=== PATIENT | female | born 1980 | race Caucasian/White ===

== ENCOUNTER 2020-10-15 16:09 | Outpatient (CLI) | payer OTHER ==
--- NOTE | 2020-10-15 17:04 | Ultrasound Report ---
PROCEDURE: Pelvic w/Transvaginal INDICATIONS: PELVIC PAIN TECHNIQUE: Real-time scanning was performed of the pelvic organs, with image documentation. Additional endovagi nal scanning was necessary due to incomplete visualization of the adnexal and endometrial structures by transabdominal scanning. COMPARISON: None. FINDINGS: Transabdominal scanning: Limited scanning through the kidneys shows no hydronephrosis. No pathologi c free abdominal or pelvic fluid. Endovaginal scanning: Uterus: Uterus is normal in size at 8.3 x 3.8 x 5.3 cm. The endometrium measures 6 mm in combined t hickness. IUD is noted be in appropriate position. Ovaries: Right ovary measures 2.6 x 2.3 x 2.1 cm, volume 6.8 cc. Less than 12 follicles are noted. L eft ovary measures 3.1 x 1.7 x 2.1 cm, volume 5.5 cc. Less than 12 follicles are noted. IMPRESSION: 1. IUD is in appropriate position. 2. No visualized cause of pain. Reviewed by: Jenn Goldberg MD on 10/15/2020 5:03 PM PST Approved by: Jenn Goldberg MD on 10/15/2020 5:03 PM PST Station ID: [id number]
== END 2020-10-15 16:10 | disposition home or self-care (01) ==
LOC: DI 16:09
PROVIDERS: ATTEND Nurse Practitioner Family
DX: R10.2 Pelvic and perineal pain (principal); Z97.5 Presence of (intrauterine) contraceptive device

== ENCOUNTER 2023-05-26 14:25 | Outpatient (CLI) | payer OTHER ==
[2023-05-26 19:59] LABS: BASOPHILS % (AUTO) 0.4 %; EOSINOPHILS # (AUTO) 0.1 10^3/uL (0.0-0.7); HCT - HEMATOCRIT 38.6 % (37.0-47.0); HGB - HEMOGLOBIN 12.9 g/dL (12.0-16.0); LYMPHOCYTES # (AUTO) 1.4 10^3/uL (1.5-3.5); LYMPHOCYTES % (AUTO) 20.3 %; MEAN CORPUSCULAR HEMOGLOBIN 29.9 pg (27.0-31.0); MEAN CORPUSCULAR HGB CONC 33.4 g/dL (32.0-36.0); MEAN CORPUSCULAR VOLUME 89.6 fL (81.0-99.0); MEAN PLATELET VOLUME 9.5 fL (7.9-10.8); MONOCYTES # (AUTO) 0.4 10^3/uL (0.0-1.0); NEUTROPHILS # (AUTO) 5.1 10^3/uL (1.5-6.6); NEUTROPHILS % (AUTO) 72.2 %; PLT - PLATELET COUNT 284 10^3/uL (130-450); RED BLOOD COUNT 4.31 10^6/uL (4.20-5.40); RED CELL DISTRIBUTION WIDTH 11.7 % (12.0-15.0); WHITE BLOOD COUNT 7.1 x10^3/uL (4.8-10.8)
[2023-05-26 20:16] LABS: ALBUMIN/GLOBULIN RATIO 1.6 (1.0-2.2); BILIRUBIN,TOTAL 0.3 mg/dL (0.2-1.0); CREATININE 0.6 mg/dL (0.6-1.3); POTASSIUM 3.5 mmol/L (3.5-4.5); TOTAL PROTEIN 6.5 g/dL (6.4-8.9)
[2023-05-28 04:09] LABS: HBsAG SCREEN Negative (Negative)
[2023-05-28 05:13] LABS: HCV AB Non Reactive (Non Reactive); RPR Non Reactive (Non Reactive)
[2023-05-28 08:10] LABS: HIV SCREEN 4TH GENERATION Non Reactive (Non Reactive)
[2023-05-28 09:10] LABS: VARICELLA-ZOSTER AB IGG 3122 index (Immune >165)
== END 2023-05-26 23:59 | disposition home or self-care (01) ==
LOC: LAB.S 14:25
PROVIDERS: ATTEND Nurse Practitioner Obstetrics & Gynecology
DX: O09.521 Supervision of elderly multigravida, first trimester (principal); Z36.89 Encounter for other specified antenatal screening
CPT/HCPCS: 36415; 80053; 84439; 84443; 85025; 86592; 86762; 86787; 86803; 86850; 86870; 86880; 86900; 86901; 87340; 87389

== ENCOUNTER 2023-09-06 08:52 | Outpatient (CLI) | payer OTHER ==
[2023-09-06 15:07] LABS: HCT - HEMATOCRIT 35.4 % (37.0-47.0); HGB - HEMOGLOBIN 11.5 g/dL (12.0-16.0); MEAN CORPUSCULAR HEMOGLOBIN 30.7 pg (27.0-31.0); MEAN CORPUSCULAR HGB CONC 32.5 g/dL (32.0-36.0); MEAN CORPUSCULAR VOLUME 94.7 fL (81.0-99.0); MEAN PLATELET VOLUME 9.9 fL (7.9-10.8); RED BLOOD COUNT 3.74 10^6/uL (4.20-5.40); RED CELL DISTRIBUTION WIDTH 13.1 % (12.0-15.0)
== END 2023-09-06 08:53 | disposition home or self-care (01) ==
LOC: LAB.S 08:52
PROVIDERS: ATTEND Nurse Practitioner Obstetrics & Gynecology
DX: Z36.9 Encounter for antenatal screening, unspecified (principal)
CPT/HCPCS: 36415; 82950; 85027; 86850

== ENCOUNTER 2023-10-22 12:51 | Outpatient (CLI) | payer OTHER ==
--- NOTE | 2023-10-22 15:19 | Ultrasound Report ---
PROCEDURE: OB F/U or Repeat INDICATIONS: SUPERVISION OF ELDERLY MULTIGRAVIDA OUTSIDE/PRIOR DATING DATA: Last menstrual period (LMP): Unknown. LMP-based estimated date of delivery (BENNIE): Unknown. First dating scan (date and location): Not applicable. Estimated date of delivery (BENNIE) from first dating scan: Not applicable. The below data below was generated using the working BENNIE of 10/20/2024 TECHNIQUE: Ultrasound of the gravid uterus was performed and recorded. COMPARISON: None. FINDINGS: General: A single live intrauterine gestation is present. Presentation: Vertex Placenta: Placental position is fundal/anterior without previa. Amniotic fluid index: 15.1 cm, 54.8 percentile for gestational age. heart rate: 166 beats per minute. Maternal cervical canal: 3.7 cm long; normal length is 2.5 cm or more. biometrics: Biparietal diameter: 7.7 cm, 31 week 0 day, 27.1 percentile Head circumference: 28.7 cm, 31 week 4 day, 17.1 percentile Abdominal circumference: 27.4 cm, 31 week 3 day, 49.0 percentile Femur length: 5.9 cm, 30 week 5 day, 19.9 percentile Estimated gestational age by working dates: 31 week 3 day Composite gestational age by current ultrasound: 31 week 1 day Estimated weight and percentile: 1725.9 g, 31.8 percentile Measurement variability in biometric dating: +/- 10 days from 12-20 weeks gestation, +/- 2 weeks from 20-30 weeks gestation, +/- 3 weeks at 30 weeks gestation or more. Anatomic survey: Neuro: Ventricles are non-dilated at less than 10 mm. Cisterna magna is normal at 3-11 mm. Cerebel lum is normal in size and morphology. Nuchal skin fold: Normal at less than 6 mm between 14-20 weeks gestational age. Face: Nose and lips, facial profile are normal. Spine: No evidence for spina bifida. Heart: 4-chambered heart is present, with normal ventricular outflow tracts. Diaphragm: Diaphragm is intact. Stomach: Left-sided stomach is present. Kidneys: No hydronephrosis. Normal is less than 5 mm in 2nd trimester, less than 7 mm in 3rd trimester. Cord: 3-vessel cord has orthotopic insertion. Bladder: Normal in size. Extremities: All 4 extremities identified. Other: Not applicable. IMPRESSION: Single live intrauterine consistent with 31 week 1 day gestation by current ultrasound Normal anatomic survey Reviewed by: Jose Armstrong MD on 10/22/2023 2:18 PM WENDY Approved by: Jose Armstrong MD on 10/22/2023 2:18 PM WENDY Station ID: [id number]
== END 2023-10-22 12:52 | disposition home or self-care (01) ==
LOC: DI 12:51
PROVIDERS: ATTEND Nurse Practitioner Obstetrics & Gynecology
DX: O09.529 Supervision of elderly multigravida, unspecified trimester (principal); Z3A.31 31 weeks gestation of pregnancy

== ENCOUNTER 2023-11-03 08:41 | Outpatient (CLI) | payer OTHER ==
[2023-11-03 15:18] LABS: HCT - HEMATOCRIT 30.2 % (37.0-47.0); HGB - HEMOGLOBIN 9.6 g/dL (12.0-16.0); MEAN CORPUSCULAR HEMOGLOBIN 29.3 pg (27.0-31.0); MEAN CORPUSCULAR HGB CONC 31.8 g/dL (32.0-36.0); MEAN CORPUSCULAR VOLUME 92.1 fL (81.0-99.0); MEAN PLATELET VOLUME 10.3 fL (7.9-10.8); RED BLOOD COUNT 3.28 10^6/uL (4.20-5.40); RED CELL DISTRIBUTION WIDTH 13.2 % (12.0-15.0); WHITE BLOOD COUNT 7.9 x10^3/uL (4.8-10.8)
== END 2023-11-03 08:42 | disposition home or self-care (01) ==
LOC: LAB.S 08:41
PROVIDERS: ATTEND Nurse Practitioner Obstetrics & Gynecology
DX: R53.83 Other fatigue (principal)
CPT/HCPCS: 36415; 85027

== ENCOUNTER 2023-12-03 09:50 | Outpatient (CLI) | payer OTHER ==
[2023-12-03 10:49] LABS: HCT - HEMATOCRIT 30.1 % (37.0-47.0); MEAN CORPUSCULAR HGB CONC 33.2 g/dL (32.0-36.0); MEAN CORPUSCULAR VOLUME 90.4 fL (81.0-99.0); MEAN PLATELET VOLUME 10.1 fL (7.9-10.8); RED BLOOD COUNT 3.33 10^6/uL (4.20-5.40); RED CELL DISTRIBUTION WIDTH 15.5 % (12.0-15.0); WHITE BLOOD COUNT 6.8 x10^3/uL (4.8-10.8)
== END 2023-12-03 09:51 | disposition home or self-care (01) ==
LOC: LAB 09:50
PROVIDERS: ATTEND Nurse Practitioner Obstetrics & Gynecology
DX: R53.83 Other fatigue (principal)
CPT/HCPCS: 36415; 85027

== ENCOUNTER 2023-12-21 11:10 | Inpatient (IN) | payer OTHER ==
[2023-12-21] MEDS ORDERED: METHYLERGONOVINE 0.2 MG/ML VIAL IM PRN (12:35)
[2023-12-21] MEDS ORDERED: TRANEXAMIC ACID IN NACL 1,000 MG/100 ML BAG IV PRN (12:35)
[2023-12-21] MEDS ORDERED: OXYTOCIN 10 UNIT/ML VIAL IM PRN (12:35)
[2023-12-21] MEDS ORDERED: ONDANSETRON 4 MG/2 ML VIAL IVP PRN (12:35)
[2023-12-21] MEDS ORDERED: OXYTOCIN/SODIUM CHLORIDE 500 ML IV PRN (12:35)
[2023-12-21] MEDS ORDERED: miSOPROStoL 200 MCG TABLET BC PRN (12:35)
[2023-12-21] MEDS ORDERED: SODIUM CHLORIDE FLUSH 0.9% 10 ML SYRINGE IVP PRN (12:35)
[2023-12-21] MEDS ORDERED: CARBOPROST TROMETHAMINE 250 MCG/ML AMP IM PRN (12:35)
[2023-12-21] MEDS ORDERED: lidocaine 1% 20 ML MDV ID PRN (12:35)
[2023-12-21 12:39] LABS: BASOPHILS % (AUTO) 0.3 %; EOSINOPHILS # (AUTO) 0.1 10^3/uL (0.0-0.7); EOSINOPHILS % (AUTO) 0.8 %; HCT - HEMATOCRIT 34.2 % (37.0-47.0); HGB - HEMOGLOBIN 11.3 g/dL (12.0-16.0); LYMPHOCYTES # (AUTO) 1.1 10^3/uL (1.5-3.5); LYMPHOCYTES % (AUTO) 18.1 %; MEAN CORPUSCULAR HEMOGLOBIN 29.8 pg (27.0-31.0); MEAN CORPUSCULAR VOLUME 90.2 fL (81.0-99.0); MEAN PLATELET VOLUME 10.9 fL (7.9-10.8); MONOCYTES # (AUTO) 0.5 10^3/uL (0.0-1.0); MONOCYTES % (AUTO) 8.7 %; NEUTROPHILS # (AUTO) 4.4 10^3/uL (1.5-6.6); NEUTROPHILS % (AUTO) 71.9 %; PLT - PLATELET COUNT 154 10^3/uL (130-450); RED BLOOD COUNT 3.79 10^6/uL (4.20-5.40); RED CELL DISTRIBUTION WIDTH 16.6 % (12.0-15.0); WHITE BLOOD COUNT 6.2 x10^3/uL (4.8-10.8)
--- NOTE | 2023-12-21 12:39 | HISTORY & PHYSICAL EXAMINATION ---
Admit History - Visit Reason Visit Reason: Other - : 4 Parity: 1 Premature: 0 Ectopic: 0 : 2 Care: positive: [facility] Risk/History: positive: None Complications This : positive: Other Smoking Status: Never smoker - Mother's Labs Mother's Blood Type: positive: A Mother's RH: positive: Negative GBS: positive: Group B Step Negative Rubella Status: positive: Immune - HPI Current EDU 12/21/23 Gestation 40 Weeks and 0 Days 4 Vital Signs Temperature 36.8 C 12/21/23 11:36 Temperature 36.8 C 12/21/23 11:36 Heart Rate Respiratory Rate Blood Pressure O2 Saturation If not protocol: Oxygen Flow, liters/minute - NST Procedure FHR Baseline 140s, moderate variability, + accels, no decels Occasional contraction appreciated via tocometry. Meds/Allgy - Allergies Allergies/Adverse Reactions: Allergies Allergy/AdvReac Type Severity Reaction Status Date / Time doxycycline AdvReac Severe Edema Verified 11/24/23 13:39 Review of Systems - Constitutional Constitutional: denies: Fatigue, Fever, Chills, Malaise - Eyes Eyes: denies: Blurred vision, Spots in vision, Dipolpia - Cardiovascular Cariovascular: denies: Irregular heart rate, Palpitations, Chest pain, Edema - Respiratory Respiratory: denies: Cough, Wheezing, SOB at rest - Gastrointestinal Gastrointestinal: denies: Constipation, Diarrhea, Nausea, Vomiting - Genitourinary Genitourinary: denies: Dysuria - Integumentary Integumentary: denies: Rash, Pruritis - Neurological Neurological: denies: Headache - Psychiatric Psychiatric: denies: Depression, Anxiety - Hematologic/Lymphatic Hematologic/Lymphatic: reports: Anemia - All Other Systems All Other Systems: reports: Reviewed and negative Physical - Abdominal Exam Vital Signs: Temp Pulse Resp BP Pulse Ox O2 Flow Rate 36.8 C 12/21/23 11:36 Contraction Intensity: positive: Mild Uterine Resting Tone: positive: Soft - Monitoring Heart Rate Baseline: 140 Strip Review: positive: Category I - Presentation Presentation: positive: Vertex - Vaginal Exam Membranes: positive: Membranes intact - Speculum Exam Speculum Exam Performed: positive: No Plan for Labor - Plan For Labor I expect patient to be DC'd or transferred within 96 hours.: Yes Plan for Labor: Krys is a 43yo @wks gestation by LMP c/w 9.0wks gestation who presents to [facility] for medical induction of labor secondary to advanced maternal age. She denies vaginal bleeding or leakage of fluid and reports +FM. She reports intermittent, menstrual cramp-like contractions. Upon arrival SVE was deferred. Her most recent SVE in the clinic on Wednesday was 1/thick/high, posterior. FHR baseline 140s, + accels, no decels. She has been a patient of [facility] for the duration of her . Her has been complicated by her advanced maternal age for which she was referred to [facility] for early genetic ultrasound which was normal and she had normal genetic screening complete. In addition she has had twice weekly testing which was initiated at 36 weeks gestation. 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 Her 20 week anatomic survey revealed marginal cord insertion and therefore she had a growth ultrasound performed at 32 wks and was WNL. In addition, her has been complicated by anemia that required iron infusions and she received 3 iron infusions with mild improvement noted in her labs. She has also been taking twice daily oral FeSO4 when she can tolerate it. She will be admitted to [facility] for pre-induction cervical ripening with misoprostol. She is supported by her Aissatou today and will likely have her friend Nena for labor support when she reaches a more active phase. She verbalized understanding and agrees to established plan. She denies further questions or concerns at this time. Dating criteria: LMP: 03/16/2023 Initial U/S @ 9.0wks c/w LMP dating Serial exams - agree pocket setter lockstitch History: Term NSVB x 1. SAB x 1. TAB x 1. Last pap 2020 WNL, neg HPV. Denies history of gonorrhea, chlamydia, oral herpes. 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 Medical Hx: migraines with aura Surgical Hx: none Social Hx: Monogamous with male partner Aissatou. Stopped drinking alcohol due to . Denies current use of tobacco, marijuana or other recreational drugs. Reports that she is safe in current relationship. She works as a nurse practitioner at [employer]. Family Hx: Denies family history of congenital anomalies, Cystic Fibrosis or chromosomal abnormalities. Allergies: Doxycyline sensitivity Medications: Acyclovir tid (HSV-2 suppression); PNV; 81mg ASA once daily, FeSO4 bid course: A negative, antibody positive (secondary to rhogam administration following recent miscarriage) Hep B neg, Hep C neg HIV non-reactive, RPR nonreactive Rubella immune, varicella immune Initial U/S @ 9.0wks c/w LMP dating Genetic screening - negative CMP- WNL TFTs - WNL FAS WNL. Posterior placenta, no previa. Size c/w dating (EFW 32%tile). Marginal cord insertion noted. 3VC. SHANA WNL. Glucola 111 Antibody negative Rhogam administered 09/24/2023 Tdap 10/29/2023 COVID-19 booster - 11/24/2023 RSV vaccine 11/24/2023 GBS - negative Physical exam: Normocephalic, atraumatic Heart RRR w/o M/G/R Lungs CTAB Abdomen gravid, soft, nontender EFW 3600g FHR baseline 140s, moderate variability, + accels, no decels Contractions palpate mild occasionally with soft resting tone SVE - deferred Bilateral LE's trace edema Mood is good Assessment: 43yo @ 40.0wks gestation by LMP c/w 9.0wk U/S Advanced maternal age Anemia complicating HSV-2 positive hx, no outbreak present Plan: Admit to [facility] for medical induction of labor with pre-induction cervical ripening. 50mcg BC misoprostol q 4 hrs. Consider cervical ripening balloon placement prior to next dose of misoprostol. Continuous monitoring. Jacuzzi PRN. Nitrous oxide PRN. Epidural per maternal request. Anticipate .
[2023-12-21] MEDS: miSOPROStoL 100 MCG TABLET BC SCH (13:46)
[2023-12-21] MEDS ORDERED: SODIUM CHLORIDE FLUSH 0.9% 10 ML SYRINGE IVP SCH (17:00)
--- NOTE | 2023-12-21 17:31 | PROVIDER PROGRESS NOTE ---
Labor Progress Note - Uterine Monitoring Uterine Monitoring Mode: positive: External toco Contraction Frequency (min/apart): intermittent Contraction Intensity: positive: Mild to moderate Uterine Resting Tone: positive: Soft - Monitoring Monitor Mode: positive: External ultrasound Heart Rate Baseline: 140s Heart Rate Variability: positive: Moderate (6-25 bmp) Accelerations: positive: Present, 15x15 Decelerations: positive: None Strip Review: positive: Category I - Vaginal Exam Dilation (in cm): 1 Effacement (%): 50 Station: -3 Cervical Position: Posterior - Labor Progress Note Labor Progress Note/Additional Text: S: Feeling some of her contractions and states they are beginning to occur more consistently. She is sitting up and eating with her currently and coping well. Mood is good. O: FHR baseline 140sd, moderate variability, + accels,, no dcels Contractions palpate mild intermittently with soft resting tone SVE 1/50/-3, posterior. Vertex. Intact membranes Jeffries cervical ripening balloon inserted. 60cc each NS infused intrauterine and vaginal balloons. Pt tolerated placement well. A: 43yo @ 40.0wks gestation Advanced maternal age Anemia complicated HSV-2 positive GBS neg FHR Category I P: Continue 50mcg BC misoprostol q 4 hours until cervical ripening balloon is expelled. Then repeat SVE and consider AROM vs pitocin. Continuous monitoring. Jacuzzi PRN. Nitrous oxide PRN. Epidural per maternal request. Anticipate .
[2023-12-21] MEDS ORDERED: DOXYLAMINE 25 MG TABLET PO PRN (22:48)
--- NOTE | 2023-12-22 07:55 | PROVIDER PROGRESS NOTE ---
Labor Progress Note - Uterine Monitoring Uterine Monitoring Mode: positive: External toco Contraction Frequency (min/apart): 6 Contraction Intensity: positive: Mild to moderate Uterine Resting Tone: positive: Soft - Monitoring Monitor Mode: positive: External ultrasound Heart Rate Baseline: 130 Heart Rate Variability: positive: Moderate (6-25 bmp) Accelerations: positive: Present, 15x15 Decelerations: positive: Variable, Intermittent (<50% x20 min) Strip Review: positive: Category I - Vaginal Exam Dilation (in cm): 5 Effacement (%): 70 Station: -3 Cervical Position: Posterior - Labor Progress Note Labor Progress Note/Additional Text: S: Feeling well overall. She was able to sleep intermittently throughout the night. She is feeling ready to move forward with labor. She has been experiencing contractions and states they are occasionally significant and require her to breathe through them. Her Aissatou is supportive at the bedside. O: FHR baseline 135, moderate variability, + accels. She had several variable decelerations when she was initially placed back on the monitor after a period of no medications and rest which resolved with position change. Contractions palpate mild every 6 minutes with soft resting tone SVE 5/70/-3, posterior. Vertex. A: 43yo @ 40.1wks gestation by LMP c/w 9.0wk U/S Advanced maternal age Anemia complicating FHR Category I GBS negative P: Initiate pitocin for induction of labor with titration per protocol. Consider AROM when station is adequately engaged. Continuous monitoring. Jacuzzi PRN. Nitrous oxide PRN. Epidural per maternal request. Anticipate .
[2023-12-22] MEDS: FAMOTIDINE 20 MG TABLET PO SCH (08:38)
[2023-12-22] MEDS: OXYTOCIN/SODIUM CHLORIDE 500 ML IV SCH (08:38)
[2023-12-22] MEDS: LACTATED RINGERS 1,000 ML IV SCH (08:48)
[2023-12-22] MEDS ORDERED: CARBOPROST TROMETHAMINE 250 MCG/ML VIAL IM PRN (08:49)
--- NOTE | 2023-12-22 10:38 | PHARMACY PROGRESS NOTE ---
- Best Possible Medication History Admit Date and Time: 12/21/23 1235 Processed by: Pharmacy Medications reviewed in ED?: No Medication History completed: Yes Patient Interview: Pt unable to participate Secondary Source(s): Insurance records As the person ultimately responsible for medication therapy, providers are able to order a medication from an existing home medication list in [facility] via the "Reconcile Routine" prior to Confirmation of that medication by application support technician. Such practice is discouraged except when the physician, in their clinical judgment, deems that a medical need exists for a medication without regard to previous use.
[2023-12-22] MEDS: diphenhydrAMINE INJ 50 MG/ML VIAL IVP PRN (15:55)
[2023-12-22] MEDS ORDERED: ceFAZolin 2 GM VIAL ONE (16:22)
[2023-12-22] MEDS ORDERED: TERBUTALINE 1 MG/ML VIAL SUBQ ONE (16:28)
[2023-12-22] MEDS ORDERED: fentaNYL 100 MCG/2 ML VIAL ONE (16:37)
[2023-12-22] MEDS ORDERED: SODIUM CHLORIDE 0.9% 10 ML VIAL IVP ONE ×2 (16:38→16:51)
[2023-12-22] MEDS ORDERED: MORPHINE PF 5 MG/10 ML VIAL ONE (16:38)
[2023-12-22] MEDS ORDERED: ePHEDrine 50 MG/ML VIAL IVP ONE (16:38)
[2023-12-22] MEDS ORDERED: MORPHINE PF 5 MG/10 ML VIAL IT ONE (16:40)
[2023-12-22] MEDS ORDERED: fentaNYL 100 MCG/2 ML VIAL IT ONE (16:40)
[2023-12-22] MEDS ORDERED: OXYTOCIN 10 UNIT/ML VIAL ONE (16:51)
[2023-12-22] MEDS ORDERED: ATROPINE ABBOJECT 1 MG/10 ML SYRINGE IVP PRN (16:55)
[2023-12-22] MEDS ORDERED: HYDROmorphone 0.5 MG/0.5 ML SYRINGE IVP PRN (16:55)
[2023-12-22] MEDS ORDERED: NALOXONE 0.4 MG/ML VIAL IVP PRN ×3 (16:55→19:26)
[2023-12-22] MEDS ORDERED: NALBUPHINE 10 MG/ML AMP IVP PRN (16:55)
[2023-12-22] MEDS ORDERED: diphenhydrAMINE INJ 50 MG/ML VIAL IVP PRN (16:55)
[2023-12-22] MEDS ORDERED: ePHEDrine 50 MG/ML VIAL IVP PRN ×2 (16:55)
[2023-12-22] MEDS ORDERED: MORPHINE 2 MG/ML CARPUJECT IVP PRN (16:55)
[2023-12-22] MEDS ORDERED: METOCLOPRAMIDE 10 MG/2 ML VIAL IVP PRN ×2 (16:55)
[2023-12-22] MEDS ORDERED: fentaNYL 100 MCG/2 ML VIAL IVP PRN (16:55)
[2023-12-22] MEDS ORDERED: ONDANSETRON 4 MG/2 ML VIAL IVP PRN ×2 (16:55)
[2023-12-22] MEDS ORDERED: AZITHROMYCIN INJ 500 MG in SODIUM CHLORIDE 0.9% 250 ML IV ONE (17:00)
[2023-12-22] MEDS ORDERED: LACTATED RINGERS 1,000 ML IV SCH ×2 (17:00)
[2023-12-22] MEDS ORDERED: ceFAZolin (2G) 2 GM in SODIUM CHLORIDE 0.9% MINIBAG 100 ML IV ONE (17:00)
[2023-12-22] MEDS ORDERED: ONDANSETRON 4 MG/2 ML VIAL ONE (17:07)
[2023-12-22] MEDS ORDERED: KETOROLAC 30 MG/ML VIAL ONE (17:09)
--- NOTE | 2023-12-22 17:14 | ANESTHESIA ---
Pre-Anesthesia VS, & Labs - Diagnosis failure to progress - Procedure c/s Vital Signs: Temp Pulse Resp BP Pulse Ox O2 Flow Rate 36.3 C L 12/21/23 19:59 Height: 5 ft 2 in Weight (kg): 78.925 kg Body Mass Index: 31.8 BMI Classification: Obese - Is Patient ?: Yes - Lab Results Current Lab Results: Laboratory Tests 12/21/23 12:30: WBC 6.2, RBC 3.79 L, Hgb 11.3 L, Hct 34.2 L, MCV 90.2, MCH 29.8, MCHC 33.0, RDW 16.6 H, Plt Count 154, MPV 10.9 H, Neut # (Auto) 4.4, Lymph # (Auto) 1.1 L, Mcculloch # (Auto) 0.5, Eos # (Auto) 0.1, Baso # (Auto) 0.0, Absolute Nucleated RBC 0.00, Nucleated RBC % 0.0 12/21/23 12:30: Blood Type A NEGATIVE, Antibody Screen POSITIVE, Antibody Identification See Comments, EDER, IgG Specific Not Reportable, EDER, Polyspecific NEGATIVE, EDER, C3d Specific Not Reportable, Crossmatch See Detail Lab results reviewed: Yes Fish Bones: 12/21/23 12:30 Home Medications and Allergies Home Medications: Ambulatory Orders Acyclovir 400 mg PO TID 12/21/23 Aspirin Chewable [St Calos Aspirin] 81 mg PO DAILY 12/21/23 Active Medications Atropine Sulfate (Atropine Abboject 1 Mg/10 Ml Syringe) 0.5 mg IVP Q5M PRN PRN Reason: Bradycardia Stop: 12/23/23 16:55 Carboprost Tromethamine (Carboprost Tromethamine 250 Mcg/Ml Vial) 250 mcg IM Q15M PRN PRN Reason: Step 4: Hemorrhage protocol Diphenhydramine HCl (Diphenhydramine Inj 50 Mg/Ml Vial) 25 mg IVP Q6H PRN PRN Reason: Allergy Symptoms Diphenhydramine HCl (Diphenhydramine Inj 50 Mg/Ml Vial) 25 mg IVP Q6H PRN PRN Reason: ITCHING Stop: 12/23/23 16:55 Doxylamine Succinate (Doxylamine 25 Mg Tablet) 25 mg PO QPM PRN PRN Reason: Insomnia Ephedrine Sulfate (Ephedrine 50 Mg/Ml Vial) 10 mg IVP Q5M PRN PRN Reason: HYPOTENSION Stop: 12/23/23 16:55 Ephedrine Sulfate (Ephedrine 50 Mg/Ml Vial) 5 mg IVP Q5M PRN PRN Reason: For SBP<100;give until SBP>100 Stop: 12/23/23 16:55 Famotidine (Famotidine 20 Mg Tablet) 20 mg PO BID RHIANNON Last Admin: 12/22/23 08:38 Dose: 20 mg Fentanyl (Fentanyl 100 Mcg/2 Ml Vial) 25 - 50 mcg IVP Q5M PRN PRN Reason: BREAKTHROUGH PAIN (2nd Choice) Stop: 12/23/23 16:55 Hydromorphone HCl (Hydromorphone 0.5 Mg/0.5 Ml Syringe) 0.2 - 0.6 mg IVP Q5M PRN PRN Reason: PAIN (First Choice) Stop: 12/23/23 16:55 Lactated Ringer's (Lr) 1,000 mls @ 100 mls/hr IV .Q10H RHIANNON Last Admin: 12/22/23 08:48 Dose: 100 mls/hr Oxytocin/Sodium Chloride (Pitocin/Sodium Chloride) 500 mls @ 999 mls/hr IV PRN PRN; Protocol PRN Reason: POST- HEMORR PREVENTION Stop: 12/26/23 12:35 Tranexamic Acid (Tranexamic 1,000 Mg/100ml-Nacl) 1,000 mg in 100 mls @ 600 mls/hr IV .ONCE PRN PRN Reason: EBL >1200mL and within 3hr Stop: 12/26/23 12:35 Oxytocin/Sodium Chloride (Pitocin/Sodium Chloride) 500 mls @ 1 mls/hr IV TITR RHIANNON; Protocol Last Titration: 12/22/23 11:14 Dose: 5 milliunit/min, 5 mls/hr Lactated Ringer's (Lr) 1,000 mls @ 125 mls/hr IV .Q8H RHIANNON Cefazolin Sodium 2 gm/ Sodium (Chloride) 100 mls @ 200 mls/hr IV ONCE ONE Stop: 12/22/23 17:29 Azithromycin 500 mg/ Sodium (Chloride) 250 mls @ 250 mls/hr IV ONCE ONE Stop: 12/22/23 17:59 Lactated Ringer's (Lr) 1,000 mls @ 100 mls/hr IV .Q10H RHIANNON Stop: 12/23/23 02:59 Lidocaine HCl (Lidocaine 1% 20 Ml Mdv) 20 ml ID .ONCE PRN PRN Reason: PERINEAL REPAIR Stop: 12/26/23 12:35 Methylergonovine Maleate (Methylergonovine 0.2 Mg/Ml Vial) 0.2 mg IM .ONCE PRN PRN Reason: Step 2: Hemorrhage protocol Stop: 12/26/23 12:35 Metoclopramide HCl (Metoclopramide 10 Mg/2 Ml Vial) 10 mg IVP Q6HR PRN PRN Reason: N/V not relieved by Zofran Metoclopramide HCl (Metoclopramide 10 Mg/2 Ml Vial) 10 mg IVP Q6HR PRN PRN Reason: Nausea / Vomiting Stop: 12/23/23 16:55 Misoprostol (Misoprostol 200 Mcg Tablet) 800 mcg BC .ONCE PRN PRN Reason: Step 3: Hemorrhage protocol Stop: 12/26/23 12:35 Misoprostol (Misoprostol 100 Mcg Tablet) 50 mcg BC Q4HR [facility] Last Admin: 12/21/23 18:00 Dose: 50 mcg Morphine Sulfate (Morphine 2 Mg/Ml Carpuject) 2 - 4 mg IVP Q5M PRN PRN Reason: PAIN (3rd Choice) Stop: 12/23/23 16:55 Nalbuphine HCl (Nalbuphine 10 Mg/Ml Amp) 5 mg IVP Q4H PRN PRN Reason: ITCHING Stop: 12/23/23 16:55 Naloxone HCl (Naloxone 0.4 Mg/Ml Vial) 0.1 mg IVP Q2M PRN PRN Reason: RESP RATE <8 Stop: 12/23/23 16:55 Naloxone HCl (Naloxone 0.4 Mg/Ml Vial) 0.1 mg IVP Q2M PRN PRN Reason: RR < 8 Stop: 12/23/23 16:55 Ondansetron HCl (Ondansetron 4 Mg/2 Ml Vial) 4 mg IVP Q4HR PRN PRN Reason: Nausea / Vomiting Ondansetron HCl (Ondansetron 4 Mg/2 Ml Vial) 4 mg IVP ONCE PRN PRN Reason: N/V (First Choice) Stop: 12/23/23 16:55 Ondansetron HCl (Ondansetron 4 Mg/2 Ml Vial) 4 mg IVP Q6HR PRN PRN Reason: Nausea / Vomiting Stop: 12/23/23 16:55 Oxytocin (Oxytocin 10 Unit/Ml Vial) 10 unit IM .ONCE PRN PRN Reason: Step one: If no IV access Stop: 12/26/23 12:35 Sodium Chloride (Sodium Chloride Flush 0.9% 10 Ml Syringe) 10 ml IVP 0100,0900,1700 RHIANNON Sodium Chloride (Sodium Chloride Flush 0.9% 10 Ml Syringe) 10 ml IVP PRN PRN PRN Reason: NEEDED PER PROVIDER ORDERS Acyclovir 400 mg PO TID 12/21/23 Aspirin Chewable [St Calos Aspirin] 81 mg PO DAILY 12/21/23 Allergies/Adverse Reactions: Allergies Allergy/AdvReac Type Severity Reaction Status Date / Time doxycycline AdvReac Severe Edema Verified 11/24/23 13:39 Anes History & Medical History - Anesthetic History Anesthesia Complications: reports: No previous complications Family history of Anesthesia Complications: Denies Family history of Malignant Hyperthermia: Denies - Medical History Neuro: reports: Migraines Smoking Status: Never smoker - Obstetrical History : 4 Parity: 1 Events: reports: None Complications: reports: Other Exam General: Alert, Oriented x3, Cooperative Respiratory: No respiratory distress Cardiovascular: Regular rate Neurological: Normal speech Mental/Cognitive Status: Alert/Oriented X3, Normal for patient Cognitive Status: Within normal limits Plan Anesthesia Type: Spinal, Transverse Abdominis Plane (TAP) Block Regional Block: Per Surgeon's request for Post Op pain control Consent for Procedure(s) Verified and Reviewed: Yes Code Status: Attempt Resuscitation ASA classification: 2-Mild systemic disease Is this case an emergency?: Yes
[2023-12-22] MEDS: LACTATED RINGERS 1,000 ML IV ONE (17:38)
--- NOTE | 2023-12-22 17:58 | ANESTHESIA POST OP EVALUATION ---
Anesthesia Post Eval - Post Anesthesia Eval Vitals: Last Vital Signs Temp 36.3 C L 12/21/23 19:59 Pulse 57 L 12/22/23 17:55 Resp 12 12/22/23 17:55 BP 118/68 12/22/23 17:55 Pulse Ox 100 12/22/23 17:55 O2 Flow Rate CV Function Including HR & BP: Stable, Additional Therapies Ordered (Ephedrine 10mg IVP x1 for nausea and low BP.) Pain Control: Satisfactory Nausea & Vomiting: Addtional Therapies Ordered Mental Status: Baseline Respiratory Status: Airway Patent Hydration Status: Satisfactory Anesthesia Complications: None
--- NOTE | 2023-12-22 18:18 | PROCEDURE REPORT ---
Hospitalist Procedure Note - Procedure Note Procedure Note: ASSIST DOCUMENTATION: I assisted the OB aircraft avionics technician in the section for this patient. My responsibilities included retracting, and suctioning, providing fundal pressure during delivery and following with suture during closure Please see the OB's note for details of the surgery.
--- NOTE | 2023-12-22 18:43 | PROVIDER PROGRESS NOTE ---
Labor Progress Note - Uterine Monitoring Uterine Monitoring Mode: positive: External toco : 2-4 Contraction Intensity: positive: Strong Uterine Resting Tone: positive: Soft - Monitoring Monitor Mode: positive: External ultrasound Heart Rate Baseline: 130s Heart Rate Variability: positive: Moderate (6-25 bmp) Accelerations: positive: Present, 15x15 Decelerations: positive: Variable, Intermittent (<50% x20 min) Strip Review: positive: Category II - Vaginal Exam Dilation (in cm): 6 Effacement (%): 70 Station: -1 Cervical Position: Posterior - Labor Progress Note Labor Progress Note/Additional Text: S: Patient breathing hard through contractions and is in jacuzzi feeling like the water is helping her cope. She is feeling slightly discouraged that she is dilating slowly but after discussion she feels encouraged and continues to cope well with contractions. Her remains supportive at the bedside. O: FHR baseline 130s, moderate variability. Occasional variable decelerations with maintained moderate variability and overall reassuring status. + accels. Contractions palpate strong every 2-4 minutes with soft resting tone SVE 6/70/-2 and vertex. AROM occurred at 1336 and was noted to be a moderate amount of clear fluid. Pitocin at 6mU/mL. A: 43yo @ 40.1wks gestation by LMP c/w 9.0wk U/S Advanced maternal age Active labor FHR Category I at present (intermittent periods of category II, overall reassuring) GBS neg P: Continue pitocin for induction of labor with titration per protocol. Continuous monitoring. Jacuzzi PRN. Nitrous oxide PRN. Epidural per maternal request. Anticipate .
--- NOTE | 2023-12-22 18:53 | PROVIDER PROGRESS NOTE ---
Labor Progress Note - Uterine Monitoring Uterine Monitoring Mode: positive: External toco Contraction Frequency (min/apart): 2-5 Contraction Intensity: positive: Strong Uterine Resting Tone: positive: Soft - Monitoring Monitor Mode: positive: External ultrasound Heart Rate Baseline: 130s Heart Rate Variability: positive: Moderate (6-25 bmp) Accelerations: positive: Absent Decelerations: positive: Variable, Recurrent (>50% x20 min) Strip Review: positive: Category II - Vaginal Exam Dilation (in cm): 9 Effacement (%): 100 Station: -1 - Labor Progress Note Labor Progress Note/Additional Text: S: Patient breathing through contractions and coping well with use of nitrous oxide. Her Aissatou is supportive at the bedside. Between contractions we discussed my concerns for intolerance of labor. She is agreeable to delivery if needed. We reviewed my concerns for recurrent decelerations but my feeling that with complete dilation and continued maternal pushing effort she could delivery vaginally. I informed both parents that I was calling the outside sales account executive to the bedside to present for delivery regardless of route of delivery. I also discussed with them that I was going to consult with my physician provider. I encouraged continued maternal pushing effort as anterior lip was reducible following administration of IV benadryl. Multiple position changes attempted to reduce decelerations without success. Attempted period of no pushing to determine if decelerations would improve and t hey continued. O: FHR baseline 130s, moderate variability, no accels, recurrent variable declerations Contractions palpate strong every 2-5 minutes with soft resting tone SVE complete/complete/-1. Vertex. AROM x 3 hours Pitocin discontinued at A: 43yo @ 40.1wks gestation by LMP c/w 9.0wk U/S Advanced maternal age Active labor FHR Category II GBS neg P: Continue maternal pushing effort (See above for discussion with patient and family at the bedside). machine scallop cutter provider requested at the bedside. Continue nitrous oxide for pain management. vs delivery.
--- NOTE | 2023-12-22 18:58 | PROVIDER PROGRESS NOTE ---
Labor Progress Note - Uterine Monitoring Uterine Monitoring Mode: positive: External toco Contraction Intensity: positive: Strong Uterine Resting Tone: positive: Soft - Monitoring Monitor Mode: positive: External ultrasound Heart Rate Baseline: 130 Heart Rate Variability: positive: Moderate (6-25 bmp) Accelerations: positive: Absent Decelerations: positive: Variable, Recurrent (>50% x20 min) Strip Review: positive: Category II - Vaginal Exam Dilation (in cm): complete Effacement (%): complete Station: -1 - Labor Progress Note Labor Progress Note/Additional Text: Patient has continued to push effectively with contractions however head does not descend into pelvis and remains -1 station. Secondary to recurrent, deep, variable decelerations the reclamation engineer physician was requested to present to evaluate and consent the patient for ceasearn delivery secondary to intolerance of labor. This was reviewed with both the patient and her who agree with ceaseran delivery at this time. machine packager physician present at the bedside. Medical care of patient handed over to reclamation engineer physician who accepts care of patient. See physician documentation for further plan of care.
[2023-12-22] MEDS ORDERED: diphenhydrAMINE 25 MG CAPSULE PO PRN (19:26)
[2023-12-22] MEDS ORDERED: oxyCODONE 5 MG TABLET PO PRN (19:26)
[2023-12-22] MEDS ORDERED: NIFEdipine 10 MG CAPSULE PO PRN (19:26)
[2023-12-22] MEDS ORDERED: hydrALAZINE INJ 20 MG/ML VIAL IVP PRN ×2 (19:26)
[2023-12-22] MEDS ORDERED: CALCIUM CARBONATE CHEW 500 MG TABLET PO PRN (19:26)
[2023-12-22] MEDS ORDERED: OXYTOCIN/SODIUM CHLORIDE 500 ML IV PRN (19:26)
[2023-12-22] MEDS ORDERED: LABETALOL 20 MG/4 ML SYRINGE IVP PRN ×3 (19:26)
--- NOTE | 2023-12-22 19:37 | HISTORY & PHYSICAL EXAMINATION ---
History and Physical - History and Physical called to assess patient by Delicia Lester CNM. Patient pushing and making no progress. baby is not tolerating pushing and having severe decels. baby not past -1 station so too high for vacuum. otherwise uncomplicated. first baby was delivered vaginally OP about 7 pounds 5 yrs ago. Labor induced due to AMA. miso x 2 with balloon, pitocin. progressed normally. recommend c section. patient and her agree. procedure, risks reviewed. consents signed. will take back to OR for procedure. team is present.
--- NOTE | 2023-12-22 19:40 | OPERATIVE REPORT ---
Operative Report - General Admit Date: 12/21/23 Procedure Date: 12/22/23 Planned Procedure: primary low transverse c section Pre-Op Diagnosis: intolerance to pushing. Procedure Performed: Primary Low Transverse c section Post Op Diagnosis: same. baby OP - Procedure Note Primary Surgeon: Griselda Rjoas MD Secondary Surgeon: Delicia Lester CNM Anesthesia Provider: Shar Jose CRNA Anesthesia Technique: Spinal Pathology: none IV Fluids (mL): 800 Estimated Blood Loss (mL): 750 Urine Output (mL): 75 Indications: 43 yo having second child induced for AMA. progressed to complete but only -1 inspite of over an hour of pushing. no epidural. severe decels. recommend c section and parents agreed. Findings: live male in straight OP presentation. cord over shoulder but not around neck. apgars were 9 and 10. baby boy weighing 8lb 1.5 oz. placenta, uterus, tubes, ovaries all appeared normal. Complications: none - Other Other Information/Narrative: patient was brought to the OR and spinal anesthesia was given. She was laid down with left lateral tilt. prakash placed, vaginal prep done. IV Azithro and Ancef given. abdominal prep done. Time out done. anesthesia tested and found to be adequate. Pfanenstiel incision made with knife and carried down to the underlying fascia which is transected bilaterally. fascia is elevated inferiorly and superiorly and rectus muscles are dissected off sharply. Muscles are gently cut open in midline and stretched. Peritoneum is entered sharply. Danny retractor is placed and rolled down. Uterus is examined for lie. Low transverse uterine incision is made with knife and incision is stretched open. Baby's nose is right under incision. Baby's head is elevated up from the pelvis and baby is delivered easily. Baby is dried and stimulated. Cord clamped and cut at one minute. placenta delivered with gentle traction. Uterus contracted well. Uterine incision closed with running 0 Monocryl suture. A second horizontal imbricating layer was placed. There was an extension into the left side, easily repaired. Wound was hemostatic. Muscles were examined for bleeding and there was not any. Fascia was closed with 0 Vicryl. subQ was closed with 3-0 Vicryl. Skin was closed with 3-0 Monocryl. steristrip was placed. Bandage placed. Uterus expressed but nothing came out. Uterus was to left, but very mobile. Patient was brought to her room in stable condition.
[2023-12-22] MEDS: ACETAMINOPHEN 500 MG TABLET PO SCH (20:51)
[2023-12-23] MEDS: KETOROLAC 30 MG/ML VIAL IVP SCH (01:21)
[2023-12-23 06:13] LABS: HCT - HEMATOCRIT 27.6 % (37.0-47.0); HGB - HEMOGLOBIN 9.3 g/dL (12.0-16.0); MEAN CORPUSCULAR HEMOGLOBIN 30.1 pg (27.0-31.0); MEAN CORPUSCULAR HGB CONC 33.7 g/dL (32.0-36.0); MEAN CORPUSCULAR VOLUME 89.3 fL (81.0-99.0); MEAN PLATELET VOLUME 10.8 fL (7.9-10.8); RED BLOOD COUNT 3.09 10^6/uL (4.20-5.40); RED CELL DISTRIBUTION WIDTH 17.2 % (12.0-15.0); WHITE BLOOD COUNT 10.6 x10^3/uL (4.8-10.8)
[2023-12-23] MEDS: RHO(D) IMMUNE GLOBULIN 300 MCG SYRINGE IVP ONE (08:10)
[2023-12-23] MEDS: DOCUSATE SODIUM 100 MG CAPSULE PO SCH (08:10)
--- NOTE | 2023-12-23 14:42 | PROVIDER PROGRESS NOTE ---
Subjective - Subjective Subjective: Subjective Patient reports she is doing well. Lochia appropriate. Denies heavy bleeding. Ambulating. Pelvic and abdominal pain well-controlled. Tolerating oral intake. Diet: Regular. Voiding without difficulty. Passing flatus. Denies BM. Patient is bonding with baby in room Breast feeding going well. Denies feeling lightheaded, dizzy or excessively fatigued. Objective General: Alert, oriented, no apparent distress. Cardiovascular: Regular rate. Regular rhythm. Lungs: No increased work of breathing. Abdomen: Uterus firm. Below umbilicus. No guarding or rebound. Extremities: No pain on palpation. No cords palpated. Distal pulses intact. Incision: Bandage removed today. Incision clean, dry, and intact. Assessment and Plan day 1. -Routine care -Anticipate discharge tomorrow Status post primary low-transverse section -Routine postop care Acute blood loss anemia -Patient initially declined, but has now consented to iron infusion today. Objective - Vital Signs/Intake & Output Vital Signs: Vital Signs x48h Temp Pulse Resp BP 12/23/23 09:00 98.4 F 96 17 108/73 Intake & Output: Intake & Output 12/20/23 12/21/23 12/22/23 12/23/23 23:59 23:59 23:59 23:59 Intake Total 250 1023.349 Output Total 2 600 1300 Balance 248 423.349 -1300 - Lab Results Fish Bones: 12/23/23 06:00 Other Labs: Lab Results x24hrs 12/23/23 12/22/23 Range/Units 06:00 19:41 WBC 10.6 (4.8-10.8) x10^3/uL RBC 3.09 L (4.20-5.40) 10^6/uL Hgb 9.3 L (12.0-16.0) g/dL Hct 27.6 L (37.0-47.0) % MCV 89.3 (81.0-99.0) fL MCH 30.1 (27.0-31.0) pg MCHC 33.7 (32.0-36.0) g/dL RDW 17.2 H (12.0-15.0) % Plt Count 152 (130-450) 10^3/uL MPV 10.8 (7.9-10.8) fL Blood Type A NEGATIVE Maternal Bleed NEGATIVE (NEGATIVE)
[2023-12-23] MEDS: SIMETHICONE CHEW 80 MG TABLET PO PRN (16:53)
[2023-12-23] MEDS: FERRIC GLUCONATE 125 MG in SODIUM CHLORIDE 0.9% 100ML 100 ML IV ONE (19:21)
[2023-12-23] MEDS: IBUPROFEN 600 MG TABLET PO SCH (19:58)
[2023-12-24 08:13] VITALS: BP 111/64; O2SAT 98
--- NOTE | 2023-12-24 12:33 | Labor Flowsheet ---
Labor Flowsheet Datetime Report Generated by CPN: 12/24/2023 12:33 Datetime: 12/24/2023 07:56 VITAL SIGNS NBP Sys/Maryellen/Mean (mmHg): 116 : 64 : 77 Pulse: 71 LaborFlag: Labor Datetime: 12/24/2023 07:22 Membranes Ruptured Date/Time: 12/22/2023 13:35 Datetime: 12/22/2023 19:59 SpO2 (%): 100 Datetime: 12/22/2023 16:29 Patient Care Comments: EFMs removed and patient brought to OR in stable condition via bed. Datetime: 12/22/2023 16:28 Communication Comments: This RN and A. Tayler, CNM remained at bedside, evaluating FHT strip througho ut entire maternal pushing effort. Datetime: 12/22/2023 16:15 Frequency (min): 2.5-3 Duration (sec): 60-80 Pattern: Normal: <= 5 Contractions in 10 Minutes FHR Baseline Rate : 135 Variability: Minimal - Undetectable to <=5 bpm Accelerations: None Decelerations: Variable Datetime: 12/22/2023 16:13 PATIENT CARE IV/Blood Work: IV Infusing per Order Datetime: 12/22/2023 16:09 Provider Notified (Name): DR. Borjas at the roomside Datetime: 12/22/2023 14:15 COMMUNICATION Communication: RN Reviewed Strip Datetime: 12/22/2023 14:10 MEDICATIONS Pitocin (milliunits): Discontinued Datetime: 12/22/2023 14:00 Pitocin Checklist: At Least 1 Acceleration of 15 bpm x 15 Seconds in 30 Minutes or Adequate Variabi lity; No More than 1 Late Deceleration Occurred in Past 30 Minutes; No More than 5 Uterine Contractio ns in 10 Minutes for any 20 Minute Interval; Uterus Palpates Soft between Contractions; IUPC Resting Tone less than 25 mmHg Datetime: 12/22/2023 13:37 Patient Position/Activity: Hands-Knees Datetime: 12/22/2023 13:36 Membrane Status: Ruptured Membranes Rupture Method: Artificial Amniotic Fluid Color: Clear Amniotic Fluid Amount: Moderate Amniotic Fluid Odor: Normal Datetime: 12/22/2023 13:30 Comments: MHR tracing audible. Provider at bedside. Datetime: 12/22/2023 13:28 VAGINAL EXAM Dilatation (cm): 7.0 Effacement (%): 100 Station: -1 Vaginal Bleeding: Normal Show Cervix, Consistency: Soft Datetime: 12/22/2023 13:00 ASSESSMENT A Monitor Mode: Telemetry Category: Category I Datetime: 12/22/2023 08:00 Quality: Moderate Resting Tone (Palpate): Relaxed Datetime: 12/22/2023 07:38 Exam by: A. Tayler, CNM Cervix, Position: Midposition Datetime: 12/22/2023 07:37 I/O Interventions: Up to BR Datetime: 12/22/2023 07:30 UTERINE ACTIVITY Monitor Mode: External Datetime: 12/22/2023 07:00 Monitor Interventions for UA: [place] Adjusted Datetime: 12/22/2023 06:24 Monitor Interventions for FHR: Ultrasound Adjusted Datetime: 12/21/2023 20:00 FHR Baseline Changes: No Baseline Change Datetime: 12/21/2023 19:14 Respirations: 18 Temperature (C): 37.0 Temperature Route: Oral Datetime: 12/21/2023 18:00 Cervical Ripening Agents: Cytotec @ Datetime: 12/21/2023 17:23 PAIN Pain Scale: 1 Datetime: 12/21/2023 11:37 Vital Sign Comments: Pt denies s/sx of pre-e. Recheck BP and will notify Provider if elevated. Datetime: 12/21/2023 11:30 Stage of : Labor
--- NOTE | 2023-12-24 22:20 | DISCHARGE SUMMARY ---
"Discharge Summary Admit Date: 01/19/24 Discharge Date: 12/24/23 Discharging Provider: Griselda Rojas MD Code Status: Attempt Resuscitation Condition at Discharge: Stable Discharge Disposition: 01 Home, Self Care - DIAGNOSES Admission Diagnoses: AMA at 39 weeks admitted for labor induction Discharge Diagnoses with Status of Each Condition: delivered by c section after failure to descend and intolerance to labor. - HPI History of Present Illness: c/b AMA. no other issues. admitted for induction at 39 weeks. - CONSULTS | PROCEDURES Procedures: s/p misoprostol, catheter, pitocin. to complete and pushing with decels and no descent. to OR for c section. - HOSPITAL COURSE Hospital Course: post op course went well. - ALLERGIES Allergies/Adverse Reactions: Allergies Allergy/AdvReac Type Severity Reaction Status Date / Time doxycycline AdvReac Severe Edema Verified 11/24/23 13:39 - MEDICATIONS Home Medications: Ambulatory Orders Medication Instructions Recorded Confirmed Acyclovir 400 mg PO TID 12/21/23 12/21/23 Docusate Sodium 100Mg Capsule 100 - 200 mg PO BID PRN #60 cap 12/24/23 [Colace 100Mg Capsule] Ibuprofen [Motrin] 600 mg PO Q6H PRN #30 tab 12/24/23 oxyCODONE [Roxicodone] 5 mg PO Q4HR PRN #10 tab 12/24/23 - PHYSICAL EXAM AT DISCHARGE General Appearance: positive: No acute distress Abdomen: positive: Non-tender, Other (wound healing well. ) Extremities: positive: Nml appearance - LABS Result Diagrams: 12/23/23 06:00 - FOLLOW UP Follow Up: in 1-2 weeks with JOSE or Delicia Lester. pateint's preference."
== END 2023-12-24 12:00 | disposition home or self-care (01) | DRG 787 ==
LOC: WFO 11:10 → FBP 11:12 → WFO 12:34 → FBP 12:35
PROVIDERS: ADMIT Nurse Practitioner Obstetrics & Gynecology; ATTEND Obstetrics & Gynecology
PROC: 3E0DXGC Introduction of Other Therapeutic Substance into Mouth and Pharynx, External Approach (ICD-10-PCS; 2023-12-21)
PROC: 4A1HXCZ Monitoring of Products of Conception, Cardiac Rate, External Approach (ICD-10-PCS; 2023-12-21)
PROC: 3E033VJ Introduction of Other Hormone into Peripheral Vein, Percutaneous Approach (ICD-10-PCS; 2023-12-22)
PROC: 10907ZC Drainage of Amniotic Fluid, Therapeutic from Products of Conception, Via Natural or Artificial Opening (ICD-10-PCS; 2023-12-22)
PROC: 10D00Z1 Extraction of Products of Conception, Low, Open Approach (ICD-10-PCS; principal; 2023-12-22 17:00)
DX: O98.52 Other viral diseases complicating childbirth (principal); D62 Acute posthemorrhagic anemia; B00.9 Herpesviral infection, unspecified; Z3A.40 40 weeks gestation of pregnancy; Z37.0 Single live birth; O99.02 Anemia complicating childbirth; O76 Abnormality in fetal heart rate and rhythm complicating labor and delivery; O61.0 Failed medical induction of labor; O32.4XX0 Maternal care for high head at term, not applicable or unspecified; Z88.1 Allergy status to other antibiotic agents
CPT/HCPCS: 36415; 83033; 85025; 85027; 86850; 86870; 86880; 86900; 86901; 86922; A9270; J1200; J2274; J2916; J7120